=== PATIENT | male | born 1960 | race African-American/Black ===

== ENCOUNTER 2023-06-29 16:41 | Emergency (ER) | payer MEDICAID, OTHER ==
[~2023-06-29] VITALS: Ht 177.8 cm; Wt 87.1 kg
[2023-06-29 17:39] VITALS: BP 113/79; PULSE 114; RESP 16; TEMP 97.8; O2SAT 99
[2023-06-29] MEDS ORDERED: ACYC400T16 PO (17:56)
[2023-06-29] MEDS ORDERED: DOXY-447 PO (17:56)
[2023-06-29 19:22] LABS: Urine Bacteria NONE SEEN /hpf (None Seen); Urine Blood Negative /uL (Negative); Urine Clarity Clear (Clear); Urine Color Colorless (Yellow); Urine Protein, UAD Negative (Negative); Urine Specific Gravity 1.035 (1.001-1.035); Urine Urobilinogen Normal (Negative); Urine WBC <1 /hpf (0 - 3)
[2023-07-02 06:06] LABS: RPR Non Reactive (Non Reactive)
[2023-07-02 22:06] LABS: Chlamydia Trachomatis, NAA Negative (Negative); Neisseria gonorrhoeae, NAA Negative (Negative)
== END 2023-06-29 17:53 | disposition home or self-care (01) ==
LOC: ER 16:41
DX: A60.01 Herpesviral infection of penis (principal); N48.89 Other specified disorders of penis; E11.9 Type 2 diabetes mellitus without complications; Z11.3 Encounter for screening for infections with a predominantly sexual mode of transmission; Z79.899 Other long term (current) drug therapy
CPT/HCPCS: 81001; 86592